=== PATIENT | female | born 1990 | race Caucasian/White ===

== ENCOUNTER 2024-03-13 07:38 | Emergency (ER) | payer SELFPAY ==
[~2024-03-13] VITALS: Ht 162.5 cm; Wt 72.6 kg
[~2024-03-13 07:38] MED LIST: MACROBID100 M1 PO; NKHM PO; PERCOCET 325 MG1 TA5 PO; ZOFRAN4 MG PO
[2024-03-13] MEDS ORDERED: VALTREX1000 MG PO (08:14)
== END 2024-03-13 08:17 | disposition home or self-care (01) ==
LOC: ED 07:38
DX: A60.00 Herpesviral infection of urogenital system, unspecified (principal); J45.909 Unspecified asthma, uncomplicated; Z98.890 Other specified postprocedural states